=== PATIENT | female | born 1965 | race American Indian/Alaskan Native ===

== ENCOUNTER 2016-12-08 09:13 | Emergency (ER) | payer BC ==
--- NOTE | 2016-12-08 09:30 | Emergency Department Report ---
Chief Complaint: Allergic Reaction Stated Complaint: SWOLLEN LIP/POSS ALLERGIC REACTION Time Seen by Provider: 12/08/16 09:25 - HPI History of Present Illness: on flexeril and lisinopril uppper lip swollen abc intact vss ro angioedema from [facility] on it 6y - ROS Review of Systems: see above - Exam Vital Signs: Vital Signs 12/08/16 09:22 Temperature 98.2 F Pulse Rate 75 Respiratory 16 Rate Blood Pressure 129/87 O2 Sat by Pulse 100 Oximetry MSE screening note: Focused history and physical exam performed. Due to findings the following was ordered: ED Disposition for MSE Condition: Stable
[2016-12-08] MEDS ORDERED: BENADRYL IV ONE (10:30)
[2016-12-08] MEDS ORDERED: PEPCID IV ONE (10:30)
[2016-12-08] MEDS ORDERED: NACL 0.9% 1000 ML 1,000 ML IV ONE (10:30)
--- NOTE | 2016-12-08 11:01 | Emergency Department Report ---
ED Allergic Reaction HPI - General Chief complaint: Allergic Reaction Stated complaint: SWOLLEN LIP/POSS ALLERGIC REACTION Time Seen by Provider: 12/08/16 10:19 Source: patient Mode of arrival: Ambulatory Limitations: No Limitations - History of Present Illness MD Complaint: allergic reaction, facial swelling, other (upper lip swelling) Onset/Timin -: Sudden, days(s) Exposure: medication Symptoms: facial swelling, lip swelling. denies: rash, itching, difficulty swallowing, difficulty breathing, orolingual swelling, hoarseness, syncopy, dizziness, vomiting, other Severity: moderate Treatment Prior to Arrival: none Previous Allergy History: none - Related Data Home Medications Medication Instructions Recorded Confirmed Last Taken Cyclobenzaprine [Flexeril] 10 mg PO TID PRN 12/08/16 12/08/16 12/07/16 Gabapentin [Neurontin] 100 mg PO BID 12/08/16 12/08/16 12/07/16 Lisinopril/Hydrochlorothiazide 1 each PO DAILY 12/08/16 12/08/16 12/07/16 [Zestoretic 20-12.5 mg] Previous Rx's Medication Instructions Recorded Last Taken Type Famotidine [Pepcid] 40 mg PO QHS #15 tablet 12/08/16 Unknown Rx predniSONE [Deltasone] 50 mg PO QDAY #5 tab 12/08/16 Unknown Rx Allergies Allergy/AdvReac Type Severity Reaction Status Date / Time acetaminophen [From Percocet] Allergy Unknown Verified 12/11/13 18:01 oxycodone HCl [From Percocet] Allergy Unknown Verified 12/11/13 18:01 ED Review of Systems ROS: Stated complaint: SWOLLEN LIP/POSS ALLERGIC REACTION Other details as noted in HPI Constitutional: denies: chills, fever Eyes: denies: eye pain, eye discharge, vision change ENT: denies: ear pain, throat pain Respiratory: denies: cough, shortness of breath, wheezing Cardiovascular: denies: chest pain, palpitations Endocrine: no symptoms reported Gastrointestinal: denies: abdominal pain, nausea, diarrhea Genitourinary: denies: urgency, dysuria, discharge Musculoskeletal: denies: back pain, joint swelling, arthralgia Skin: denies: rash, lesions Neurological: denies: headache, weakness, paresthesias Psychiatric: denies: anxiety, depression Hematological/Lymphatic: denies: easy bleeding, easy bruising ED Past Medical Hx - Past Medical History Previous Medical History?: Yes Hx Hypertension: Yes - Surgical History Past Surgical History?: Yes Additional Surgical History: hernia, R lumpectomy, tonsilectomy, lap band - Social History Smoking Status: Never Smoker Substance Use Type: None - Medications Home Medications: Home Medications Medication Instructions Recorded Confirmed Last Taken Type Cyclobenzaprine [Flexeril] 10 mg PO TID PRN 12/08/16 12/08/16 12/07/16 History Famotidine [Pepcid] 40 mg PO QHS #15 tablet 12/08/16 Unknown Rx Gabapentin [Neurontin] 100 mg PO BID 12/08/16 12/08/16 12/07/16 History Lisinopril/Hydrochlorothiazide 1 each PO DAILY 12/08/16 12/08/16 12/07/16 History [Zestoretic 20-12.5 mg] predniSONE [Deltasone] 50 mg PO QDAY #5 tab 12/08/16 Unknown Rx ED Physical Exam - General Limitations: No Limitations General appearance: alert, in no apparent distress - Head Head exam: Present: atraumatic, normocephalic - Eye Eye exam: Present: normal appearance - ENT ENT exam: Present: mucous membranes moist, TM's normal bilaterally, other ( upper lip with moderate swelling , able to see pharynx and no evidnece on tongue involvement) - Neck Neck exam: Present: normal inspection - Respiratory Respiratory exam: Present: normal lung sounds bilaterally. Absent: respiratory distress - Cardiovascular Cardiovascular Exam: Present: regular rate, normal rhythm. Absent: systolic murmur, diastolic murmur, rubs, gallop - GI/Abdominal GI/Abdominal exam: Present: soft, normal bowel sounds - Extremities Exam Extremities exam: Present: normal inspection - Back Exam Back exam: Present: normal inspection - Neurological Exam Neurological exam: Present: alert, oriented X3 - Psychiatric Psychiatric exam: Present: normal affect, normal mood - Skin Skin exam: Present: warm, dry, intact, normal color. Absent: rash ED Course Vital Signs 12/08/16 12/08/16 09:22 10:53 Temperature 98.2 F Pulse Rate 75 65 Respiratory 16 16 Rate Blood Pressure 129/87 O2 Sat by Pulse 100 99 Oximetry ED Medical Decision Making - Medical Decision Making patient doing well , 10 % better , no evidence of airway compromise, will dc and follow up. Critical care attestation.: If time is entered above; I have spent that time in minutes in the direct care of this critically ill patient, excluding procedure time. ED Disposition Clinical Impression: Angioedema Disposition: DISCHARGED TO HOME OR SELFCARE Is pt being admited?: No Does the pt Need Aspirin: No Condition: Good Instructions: Angioedema (ED) Prescriptions: Famotidine [Pepcid] 40 mg PO QHS #15 tablet predniSONE [Deltasone] 50 mg PO QDAY #5 tab Referrals: PRIMARY CARE, [Primary Care Provider] - 3-5 Days Forms: Work/School Release Form(ED) Time of Disposition: 14:47
[2016-12-08 15:22] VITALS: BP 130/78
== END 2016-12-08 15:23 | disposition home or self-care (01) ==
LOC: ED 09:13
DX: T78.3XXA Angioneurotic edema, initial encounter (principal); I10 Essential (primary) hypertension; Z88.6 Allergy status to analgesic agent
CPT/HCPCS: 96361; 96374; 96375; 99282; J1200; J2930; J7030

== ENCOUNTER 2017-03-19 10:06 | Outpatient (CLI) | payer BC ==
--- NOTE | 2017-03-20 11:49 | Mammography Report ---
BILATERAL DIGITAL SCREENING MAMMOGRAM with CAD : 03/19/17 10:06:00 CLINICAL: Routine screening. COMPARISON:11/02/15 and 07/05/14 FINDINGS: The breasts are heterogeneously dense, which may obscure small masses in the breasts are sufficiently dense to limit the sensitivity of mammography.A few bilateral benign calcifications. A left inner asymmetry on the CC view is unchanged since 2014. No mass, architectural distortion or suspicious calcifications. IMPRESSION: No mammographic evidence of malignancy. BI-RADS CATEGORY: 2 -- Benign RECOMMENDATION: Routine mammographic screening in one year. COMMENT: Patient follow-up letters are generated by our [employer] application.
== END 2017-03-19 10:07 | disposition home or self-care (01) ==
LOC: SPVWC 10:06
PROVIDERS: ATTEND Internal Medicine
DX: Z12.31 Encounter for screening mammogram for malignant neoplasm of breast (principal); I10 Essential (primary) hypertension
CPT/HCPCS: 77067; G0202

== ENCOUNTER 2018-05-06 10:37 | Outpatient (CLI) | payer BC ==
--- NOTE | 2018-05-06 12:47 | Mammography Report ---
BILATERAL DIGITAL SCREENING MAMMOGRAM with CAD : 05/06/18 10:37:00 CLINICAL: Routine screening. COMPARISON:03/19/17 and 06/27/14 FINDINGS: The breasts are heterogeneously dense, which may obscure small masses and the density is sufficient to limit the sensitivity of mammography. Bilateral parenchymal asymmetries are not significantly changed compared to previous exams. No mass, architectural distortion or suspicious calcifications. IMPRESSION: No mammographic evidence of malignancy. BI-RADS CATEGORY: 2 -- Benign RECOMMENDATION: Routine mammographic screening in one year. COMMENT: Patient follow-up letters are generated by our [employer] application.
== END 2018-05-06 10:38 | disposition home or self-care (01) ==
LOC: SPVWC 10:37
PROVIDERS: ATTEND Internal Medicine
DX: Z12.31 Encounter for screening mammogram for malignant neoplasm of breast (principal); I10 Essential (primary) hypertension; Z90.710 Acquired absence of both cervix and uterus
CPT/HCPCS: 77067

== ENCOUNTER 2019-05-27 11:31 | Outpatient (CLI) | payer BC ==
--- NOTE | 2019-05-30 16:11 | Mammography Report ---
DIGITAL SCREENING MAMMOGRAM WITH CAD, 05/27/2019 INDICATION: Routine screening mammography. TECHNIQUE: Digital bilateral 2D mammography was obtained in the craniocaudal and mediolateral obliq ue projections. This examination was interpreted with the benefit of Computer-Aided Detection analysi s. COMPARISON: FINDINGS: Breast Density: The breasts are extremely dense, which lowers the sensitivity of mammography. There is no evidence of dominant mass, suspicious calcifications or architectural distortion in eithe r breast. A few bilateral benign calcifications. IMPRESSION: No mammographic evidence of malignancy. Follow up recommendation: Routine yearly BI-RADS Category 2: Benign. A "normal" or negative report should not discourage follow up or biopsy of a clinically significant f inding. A written summary of these findings will be mailed to the patient. The patient will be entered into a mammography reporting system which will generate a reminder letter for the patient's next appointmen t at the appropriate interval. The [employer] recommends yearly mammograms starting at age 40 and continuing as l gissel as a woman is in good health. Breast MRI is recommended for women with an approximate 20-25% or greater lifetime risk of breast cancer, including women with a strong family history of breast or ova triston cancer or who have been treated for Hodgkin's disease. Signer Name: Maximus Camacho MD Signed: 05/30/2019 4:06 PM Workstation Name: [id number]
== END 2019-05-27 11:32 | disposition home or self-care (01) ==
LOC: SPVWC 11:31
PROVIDERS: ATTEND Internal Medicine
DX: Z12.31 Encounter for screening mammogram for malignant neoplasm of breast (principal); Z88.8 Allergy status to other drugs, medicaments and biological substances
CPT/HCPCS: 77067

== ENCOUNTER 2021-08-27 13:21 | Outpatient (CLI) | payer BC ==
--- NOTE | 2021-08-28 13:00 | Mammography Report ---
DIGITAL SCREENING MAMMOGRAM WITH CAD, 08/27/2021 CLINICAL INFORMATION / INDICATION: Routine screening mammography. SCREENING MAMMO Z12.31 TECHNIQUE: Digital bilateral 2D mammography was obtained in the craniocaudal and mediolateral obliqu e projections. This examination was interpreted with the benefit of Computer-Aided Detection analysis . COMPARISON: 05/30/2013 through 05/27/2019. FINDINGS: Breast Density: The breasts are extremely dense, which lowers the sensitivity of mammography. No dominant mass, suspicious calcifications, or architectural distortion in either breast. IMPRESSION: No mammographic evidence of malignancy. Follow up recommendation: Routine yearly BI-RADS Category 1: NEGATIVE A "normal" or negative report should not discourage follow up or biopsy of a clinically significant f inding. A written summary of these findings will be mailed to the patient. The patient will be entered into a mammography reporting system which will generate a reminder letter for the patient's next appointmen t at the appropriate interval. The [employer] recommends yearly mammograms starting at age 40 and continuing as l gissel as a woman is in good health. Breast MRI is recommended for women with an approximate 20-25% or greater lifetime risk of breast cancer, including women with a strong family history of breast or ova triston cancer or who have been treated for Hodgkin's disease. Signer Name: Des Thomason MD Signed: 08/28/2021 12:55 PM Workstation Name: [id number]
== END 2021-08-27 13:22 | disposition home or self-care (01) ==
LOC: SPVWC 13:21
PROVIDERS: ATTEND Internal Medicine
DX: Z12.31 Encounter for screening mammogram for malignant neoplasm of breast (principal); N64.89 Other specified disorders of breast
CPT/HCPCS: 77067